=== PATIENT | female | born 1955 | race Caucasian/White ===

== ENCOUNTER 2019-05-14 10:14 | Day surgery (SDC) | payer OTHER ==
[~2019-05-14] VITALS: Ht 154.9 cm; Wt 68.9 kg
[2019-05-14] MEDS ORDERED: LIDOCAINE 2% 100 MG/5 ML UJET TP ONE (11:56)
[2019-05-14] MEDS ORDERED: fentaNYL 0.05 MG/ML VIAL ONE (11:56)
[2019-05-14] MEDS ORDERED: MIDAZOLAM 2 MG/2 ML VIAL ONE (11:56)
[2019-05-14] MEDS ORDERED: MIDAZOLAM 2 MG/2 ML VIAL IVP ONE (12:18)
[2019-05-14] MEDS ORDERED: EPINEPHrine PFS 0.1 MG/ML SYR IVP ONE (13:45)
[2019-05-14] MEDS ORDERED: fentaNYL 0.05 MG/ML VIAL IVP ONE (14:45)
== END 2019-05-14 15:10 | disposition home or self-care (01) ==
LOC: MDS 10:14 → MMU 10:15 → MDS 15:10
PROVIDERS: ATTEND Internal Medicine Gastroenterology
DX: D12.5 Benign neoplasm of sigmoid colon (principal); K57.30 Diverticulosis of large intestine without perforation or abscess without bleeding; Z90.12 Acquired absence of left breast and nipple; Z90.710 Acquired absence of both cervix and uterus; Z98.890 Other specified postprocedural states
CPT/HCPCS: 45381; 45385; 88305; J0171; J2250; J3010